=== PATIENT | female | born 1935 | race Caucasian/White ===

== ENCOUNTER → 2017-05-17 | Outpatient (CLI) | payer OTHER, MEDICARE | LOC: BHFA 09:00 | PROVIDERS: ATTEND Internal Medicine Cardiovascular Disease | DX: I27.20 Pulmonary hypertension, unspecified (principal); E78.5 Hyperlipidemia, unspecified ==

== ENCOUNTER → 2017-05-25 | Outpatient (CLI) | payer OTHER, MEDICARE | LOC: BHFA 14:00 | PROVIDERS: ATTEND Internal Medicine Cardiovascular Disease | DX: I27.21 Secondary pulmonary arterial hypertension (principal); E78.5 Hyperlipidemia, unspecified ==

== ENCOUNTER 2018-02-08 10:30 | Day surgery (SDC) | payer OTHER, MEDICARE ==
[2018-02-08] MEDS ORDERED: LR 1,000 ML IV ONE (10:59)
--- NOTE | 2018-02-08 11:30 | PDANEPAE ---
ANE History of Present Illness Colonoscopy, EGD ANE Past Medical History - Cardiovascular History Hx Hypertension: No Hx Arrhythmias: No Hx Chest Pain: No Hx Coronary Artery / Peripheral Vascular Disease: No Hx CHF / Valvular Disease: No Hx Palpitations: No Cardiovascular History Comment: HYPERLIPIDEMIA - Pulmonary History Hx COPD: No Hx Asthma/Reactive Airway Disease: No Hx Recent Upper Respiratory Infection: No Hx Oxygen in Use at Home: No Hx Sleep Apnea: No Sleep Apnea Screening Result - Last Documented: Negative - Neurologic History Hx Cerebrovascular Accident: No Hx Seizures: No Hx Dementia: No Neurologic History Comment: ANDREW - Endocrine History Hx Diabetes: Yes Endocrine History Comment: NIDDM. HYPOTHYROID - Renal History Hx Renal Disorders: No - Liver History Hx Hepatic Disorders: No - Neurological & Psychiatric Hx Hx Neurological and Psychiatric Disorders: Yes Neurological / Psychiatric History Comment: ANXIETY, DEPRESSION - Cancer History Hx Cancer: Yes Cancer History Comment: Breast CA. 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 HIATAL HERNIA. PRECANCEROUS POLYPS COLON. bowel perf following colonocscopy 1998 req bowel resection - Other Health History Other Health History: OSTEOARTHRITIS - Chronic Pain History Chronic Pain: Yes (OSTEOARTHRITIS- SPINE, KNEES) - Surgical History Prior Surgeries: UMBILICAL HERNIA/REEXCISION BREAST MARGIN 01/21/16. ADIEL TOTAL KNEE'S. Bilat Mastectomy 2008. Nose reconstruction 2007,2008. Bowel resection 1998. L Thigh lumpectomy 1995. L Breast Lumpectomy/Rad 1990 ANE Review of Systems Review of Systems: - Exercise capacity METS (RN): 4 METS ANE Patient History - Allergies Allergies/Adverse Reactions: No Allergies [NKDA] Allergy (Verified 03/01/15 10:19) - Home Medications Home Medications: Calcium Carbonate [Tums 500MG (*)] 500 mg PO PRN PRN 02/20/12 [Last Taken 3 Weeks Ago ~01/18/18] Levothyroxine [Synthroid 50 mcg (*)] 50 mcg PO DAILY06 02/22/15 [Last Taken ] Multivitamins [Multivitamin (*)] 1 each PO DAILY 02/22/15 [Last Taken 3 Days Ago ~02/05/18] Simvastatin [Zocor] 20 mg PO HS 02/22/15 [Last Taken 02/06/18] metFORMIN HCL [Glucophage 500 mg (*)] 500 mg PO BIDMEAL 02/22/15 [Last Taken 2 Days Ago ~02/06/18] Pepcid HS 01/01/18 [Last Taken 3 Days Ago ~02/05/18] Zoloft 50mg (*) HS 01/01/18 [Last Taken 02/07/18] - NPO status NPO Since - Liquids (Date): 02/08/18 NPO Since - Liquids (Time): 02:00 NPO Since - Solids (Date): 02/07/18 NPO Since - Solids (Time): 09:00 - Smoking Hx Smoking Status: Never smoked - Family Anes Hx Family Hx Anesthesia Complications: None ANE Labs/Vital Signs - Vital Signs Blood Pressure: 124/76 Heart Rate: 67 Respiratory Rate: 14 O2 Sat (%): 96 Height: 157.48 cm Weight: 72.575 kg ANE Physical Exam - Airway Neck exam: FROM Mallampati Score: Class 2 Mouth exam: normal dental/mouth exam - Pulmonary Pulmonary: clear to auscultation - Cardiovascular Cardiovascular: regular rate and rhythym - ASA Status ASA Status: II ANE Anesthesia Plan Anesthesia Plan: GA with mask
[2018-02-08] MEDS ORDERED: HYDROCODONE/APAP 5/325 TAB PO PRN (11:31)
[2018-02-08] MEDS ORDERED: ONDANSETRON 4 MG/2 ML VIAL IVP PRN (11:31)
[2018-02-08] MEDS ORDERED: fentaNYL 100 MCG/2 ML INJ IVP PRN (11:31)
[2018-02-08] MEDS ORDERED: ACETAMINOPHEN 500 MG TAB PO PRN (11:31)
[2018-02-08] MEDS ORDERED: NALOXONE HCL 0.4 MG/ML INJ IVP PRN (11:31)
[2018-02-08] MEDS ORDERED: DEXAMETHASONE 4 MG/ML VIAL IVP PRN (11:31)
--- NOTE | 2018-02-08 11:52 | PDGENHP ---
History & Physical Chief Complaint: GERD h/o polyps History of Present Illness: Heartburn no dysphagia, h/o colon polyps. Colon perf with colon other GI Relevant Physical Exam: CV rrr s1s2 nl. Chest CTA. Abd + BS soft Cardiorespiratory Assessment: ASA 11
[2018-02-08] MEDS ORDERED: PROPOFOL/EMULSION 500 MG/50 ML BOTTLE IV ONE (11:55)
--- NOTE | 2018-02-08 12:29 | GIREPORT ---
[facility] - Endoscopy Department Patient Name: Radha Gutiérrez Procedure Date: 02/08/2018 11:56 AM Patient Type: Outpatient Attending MD/ ER Physician: Ernestine Donald MD Procedure: Upper GI endoscopy Indications: Epigastric abdominal pain, Heartburn Providers: Ernestine Donald MD Medicines: Monitored Anesthesia Care Complications: No immediate complications. Description of Procedure: After obtaining informed consent, the endoscope was passed under direct vision. Throughout the procedure, the patient's blood pressure, pulse, and oxygen saturations were monitored continuously. The Endoscope was intro duced through the mouth, and advanced to the second part of duodenum. [facility] GI endoscopy was accomplished without difficulty. The patient tolerated th e procedure well. Findings: The esophagus was normal. Localized moderately erythematous mucosa without bleeding was found in the gastric antrum. Biopsies were taken with a cold forceps for histology. Estimated blood loss was minimal. The examined duodenum was normal. Biopsies for histology were taken wit h a cold forceps for evaluation of celiac disease. Estimated blood loss was minimal. Estimated Blood Loss: Estimated blood loss was minimal. Post Op Diagnosis: - Normal esophagus. - Erythematous mucosa in the antrum. Biopsied. - Normal examined duodenum. Biopsied. Recommendation: - Await pathology results. - Patient has a contact number available for emergencies. The signs and symptoms of potential delayed complications were discussed with the pat ient. Return to normal activities tomorrow. Written discharge instructions we re provided to the patient. - Resume previous diet. - Continue present medications. - Use Prilosec OTC 20 mg PO daily for 12 weeks. - Return to GI office in 3 months. - Discharge patient to home. - Thank you for allowing me to participate in the care of your patient. Attending Participation: I personally performed the entire procedure. Ernestine Donald MD Ernestine Donald MD 02/08/2018 12:29:27 PM This report has been signed electronicallyErnestine Donald MD Number of Addenda: 0 Note Initiated On: 02/08/2018 11:56 AM [email or web address]
--- NOTE | 2018-02-08 12:34 | GIREPORT ---
[facility] - Endoscopy Department Patient Name: Radha Gutiérrez Procedure Date: 02/08/2018 11:57 AM Patient Type: Outpatient Attending / ER Physician: Ernestine Donald MD Procedure: Colonoscopy Indications: High risk colon cancer surveillance: Personal history of colonic polyps Providers: Ernestine Donald MD Medicines: Monitored Anesthesia Care Complications: No immediate complications. Description of Procedure: After obtaining informed consent, the scope was passed under direct vis ion. Throughout the procedure, the patient's blood pressure, pulse, and oxyg en saturations were monitored continuously. The Colonoscope was introduced through the anus and advanced to the cecum, identified by appendiceal orifice and ileocecal valve. The colonoscopy was performed without difficulty. The patient tolerated the procedure well. The quality of e bowel preparation was good except in the cecum. The terminal ileum, ileocecal valve, appendiceal orifice, and rectum were photographed. Findings: The perianal and digital rectal examinations were normal. There was evidence of a prior end-to-side colo-colonic anastomosis in t he sigmoid colon. This was patent and was characterized by healthy appeari ng mucosa. Diverticula were found in the sigmoid colon. A 7 mm polyp was found in the hepatic flexure. The polyp was sessile. T he polyp was removed with a cold snare. Resection and retrieval were compl ete. Estimated blood loss was minimal. A 6 mm polyp was found in the sigmoid colon. The polyp was sessile. The polyp was removed with a cold snare. Resection and retrieval were compl ete. Estimated blood loss was minimal. A 4 mm polyp was found in the rectum. The polyp was sessile. The polyp was removed with a cold biopsy forceps. Resection and retrieval were comple te. Estimated blood loss was minimal. Estimated Blood Loss: Estimated blood loss was minimal. Post Op Diagnosis: - Patent end-to-side colo-colonic anastomosis, characterized by healthy appearing mucosa. - Diverticulosis in the sigmoid colon. - One 7 mm polyp at the hepatic flexure, removed with a cold snare. Res ected and retrieved. - One 6 mm polyp in the sigmoid colon, removed with a cold snare. Resec susana and retrieved. - One 4 mm polyp in the rectum, removed with a cold biopsy forceps. Res ected and retrieved. Recommendation: - Await pathology results. - Patient has a contact number available for emergencies. The signs and symptoms of potential delayed complications were discussed with the pat ient. Return to normal activities tomorrow. Written discharge instructions we re provided to the patient. - High fiber diet. - Continue present medications. - Consider repeat colonoscopy is recommended for surveillance. The colonoscopy date will be determined after pathology results from today' s exam become available for review. - If all 3 polyps are adenomas consider repeat colon in 3 years if [place] ent desires to continue surveillance. - Discharge patient to home. - Thank you for allowing me to participate in the care of your patient. Attending Participation: I personally performed the entire procedure. Ernestine Donald MD Ernestine Donald MD 02/08/2018 12:34:21 PM This report has been signed electronicallyErnestine Donald MD Number of Addenda: 0 Note Initiated On: 02/08/2018 11:57 AM Total Procedure Duration Time 0 hours 12 minutes 49 seconds [email or web address]
--- NOTE | 2018-02-08 12:44 | POSTANESTH ---
Post Anesthetic Evaluation Cardiovascular Status: Normal, Stable Respiratory Status: Normal, Stable Level of Consciousness/Mental Status: Can Participate in Eval, Alert and Oriented Pain Control: Adequate, Prn Tx Ordered Nausea/Vomiting Control: Adequate, Prn Tx Ordered Complications Possibly Related to Anesthesia: None Noted
[2018-02-08 13:38] VITALS: BP 149/90
== END 2018-02-08 13:35 | disposition home or self-care (01) ==
LOC: FSGY 10:30
PROVIDERS: ATTEND Internal Medicine Gastroenterology
DX: Z12.11 Encounter for screening for malignant neoplasm of colon (principal); D12.5 Benign neoplasm of sigmoid colon; D12.3 Benign neoplasm of transverse colon; K62.1 Rectal polyp; K29.51 Unspecified chronic gastritis with bleeding; K21.9 Gastro-esophageal reflux disease without esophagitis; E11.9 Type 2 diabetes mellitus without complications; E03.9 Hypothyroidism, unspecified; E78.5 Hyperlipidemia, unspecified; Z85.3 Personal history of malignant neoplasm of breast; Z86.010 Personal history of colon polyps; Z80.0 Family history of malignant neoplasm of digestive organs; Z96.653 Presence of artificial knee joint, bilateral; Z98.0 Intestinal bypass and anastomosis status; Z90.13 Acquired absence of bilateral breasts and nipples
CPT/HCPCS: J2704